=== PATIENT | female | born 1945 ===

== ENCOUNTER 2019-06-26 13:54 | Outpatient (CLI) | payer MEDICARE, OTHER ==
--- NOTE | 2019-06-26 14:40 | MMO ---
Bilateral MAMMO Bilat Screen [facility]. CLINICAL HISTORY: Patient is 73 years old and is seen for screening. VIEWS: The views performed were: bilateral craniocaudal with tomosynthesis and bilateral mediolateral oblique with tomosynthesis. This study has been interpreted with the assistance of computer-aided detection. MAMMOGRAM FINDINGS: There are scattered fibroglandular densities. There are no suspicious masses, suspicious calcifications, or new areas of architectural distortion. IMPRESSION: THERE IS NO MAMMOGRAPHIC EVIDENCE OF MALIGNANCY. A ROUTINE FOLLOW-UP MAMMOGRAM IN 1 YEAR IS RECOMMENDED. THE RESULTS OF THIS EXAM WERE SENT TO THE PATIENT. ACR BI-RADS Category 1 - Negative MAMMOGRAPHY NOTE: 1. A negative mammogram report should not delay a biopsy if a dominant of clinically suspicious mass is present. 2. Approximately 10% to 15% of breast cancers are not detected by mammography. 3. Adenosis and dense breasts may obscure an underlying neoplasm. Reported by: YAZMIN KAPLAN MD Electonically Signed: [id number]
--- NOTE | 2019-06-26 14:45 | BD ---
EXAM: DEXA bone density examination HISTORY: 73-year-old postmenopausal female for screening COMPARISON: None FINDINGS: L1--bone mineral density 1.022 g/sq cm; T score 0.3 L2--bone mineral density 0.999 g/sq cm; T score -0.3 L3--bone mineral density 1.035 g/sq cm; T score -0.4 L4--bone mineral density 1.010 g/sq cm; T score -0.5 Total L1-L4--bone mineral density 1.017 g/sq cm; T score -0.3 Left femoral neck--bone mineral density0.650; T score -1.8 Total proximal left femur--bone mineral density 0.896; T score -0.4 IMPRESSION: Osteopenia. This patient has a 10 year WHO fracture risk of a major osteoporotic fracture of 11% and of a hip fracture of 2.0%.
== END 2019-06-26 13:55 | disposition home or self-care (01) ==
LOC: BICMAMMO 13:54
PROVIDERS: ATTEND Nurse Practitioner Family
DX: Z12.31 Encounter for screening mammogram for malignant neoplasm of breast (principal); Z13.820 Encounter for screening for osteoporosis; M85.852 Other specified disorders of bone density and structure, left thigh
CPT/HCPCS: 77063; 77067; 77080